=== PATIENT | male | born 1955 | race Caucasian/White ===

== ENCOUNTER → 2016-08-15 | Outpatient (CLI) | payer OTHER ==
[~2016-08-15] MED LIST: IOHEXOL 350 MG/ML 100ml INJECTION ONE; MELO-267 PO; NORMAL SALINE 100 ML ONE; SALINE FLUSH 10ml SYRINGE ONE
[2016-08-15 10:20] LABS: CREATININE 0.9 MG/DL (0.8-1.5)
--- NOTE | 2016-08-15 11:10 | DI ---
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 Coronal and sagittal MIP reconstructed images were created and reviewed. Three-dimensional surface shaded volume rendered imaging of the aorta and arterial vasculature was created by the technologist on a dedicated workstation under the direction of the interpreting radiologist and reviewed. Automated Exposure Control and Iterative Reconstruction dose reducing techniques were utilized. Contrast: 100 mL Omnipaque 350 Findings: CT angiogram of the chest with and without: Findings: Noncontrast images show no evidence of intramural hematoma. Very mild atherosclerotic plaque in the aortic arch. No visible coronary artery calcifications. Postcontrast imaging shows aneurysmal dilatation of the aorta at the sinuses of Valsalva at 5.5 cm on coronal image #34. Diameter at the sinotubular junction is 3.5 cm. Aortic root diameter is 3.8 cm. Mid ascending aorta is normal at 3.6 cm in diameter. Superior ascending aorta is normal at 3.5 cm diameter. There is no evidence of thoracic aortic dissection. The central pulmonary arteries are widely patent. Lung windows show no acute findings. Lung luna are clear apart from minimal basilar atelectasis or scarring. No pneumonia, pleural effusion or pneumothorax. No pulmonary masses. The central airways are patent. No evidence of axillary or mediastinal adenopathy. Heart size is normal. No pericardial effusion. 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 The dissection terminates just before the transition to the right superficial femoral artery. Right common iliac artery is dilated to 2.2 cm in diameter on axial image 166. The dissection causes mild luminal narrowing probably on the order of 60%. The false lumen is larger than the true lumen located more medially. No additional aortic dissection. No abdominal aortic aneurysm. 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 There is no significant calcified or noncalcified plaque here however and some of this may be due to impression by the diaphragm. The SMA appears normal as does the BRAYAN. Bilateral renal artery origins are normal. There are two right and one left renal arteries. Hepatic arterial anatomy is conventional. No significant atherosclerotic plaque seen in the abdominal arterial vasculature. The liver shows a subcentimeter low-attenuation focus in the left lobe which is too small to definitively characterize. The gallbladder, spleen, pancreas and adrenal glands are within normal limits. The right kidney appears normal. Small low-attenuation focus in the left kidney, statistically representing a benign cyst. No abdominal or pelvic lymphadenopathy. The visualized small and large bowel loops show mild sigmoid diverticulosis without acute diverticulitis. No bowel obstruction. The appendix is normal. Bone windows show mild degenerative change in the thoracolumbar spine. Impression: 1. 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 2. No evidence of aortic aneurysm or dissection. 3. 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 .
== END ==
LOC: IMA 09:13
PROVIDERS: ATTEND Internal Medicine Cardiovascular Disease
DX: Q25.43 Congenital aneurysm of aorta (principal); I72.3 Aneurysm of iliac artery; I77.819 Aortic ectasia, unspecified site
CPT/HCPCS: 36415; 71275; 74175; 82565; 84520; J7050; Q9967